=== PATIENT | female | born 1970 | race Caucasian/White ===

== ENCOUNTER 2020-08-13 12:29 | Inpatient (IN) | payer OTHER ==
--- NOTE | 2020-08-13 12:56 | BHS.RME ---
2019 N Coronavirus Screen - COVID-19 Screening Questions Dx of COVID-19 or had a positive test in the last 4 weeks?: No Contact with known/suspected COVID patient in last 14 days?: No Any of these symptoms or contact with someone who has?: None Traveled domestically/internationally in the last 14 days?: No Screen score: 0 Screen result: Further Evaluation Substance Use & Tx History - Substance Use History Cocaine-Crack Substance amount: $200 Frequency of use: Daily Substance route: Smoking Date of Last Use: 08/07/20 (started age 19) Nicotine Substance amount: 1 pack Frequency of use: Daily Substance route: Smoking Date of Last Use: 08/13/20 (started age 19) Physical/Psych/Mental Status - Behavior Eye Contact: Normal - Cooperativeness Cooperativeness: Cooperative - Thinking Thought Processes: Tight, Logical, Goal Directed - Physical Health Problems Is patient presently having any pain?: No Does patient presently have any injuries (include location): No Does patient currently have a fever: No Is patient : No
[2020-08-13 15:09] VITALS: BMI 23.8
--- NOTE | 2020-08-13 15:36 | HP ---
CIWA Score - Admission Criteria OASAS Guidelines: Admission for Medically Managed Detox: Requires at least one of the followin. CIWA greater than 12 2. Seizures within the past 24 hours 3. Delirium tremens within the past 24 hours 4. Hallucinations within the past 24 hours 5. Acute intervention needed for co occurring medical disorder 6. Acute intervention needed for co occurring psychiatric disorder 7. Severe withdrawal that cannot be handled at a lower level of care (continued vomiting, continued diarrhea, abnormal vital signs) requiring intravenous medication and/or fluids 8. Admitting History and Physical - Admission Chief Complaint: I am here for rehab for cocaine History of Present Illness: 49 yo F with PMH bipolar disorder and asthma presented to [facility] for rehab (cocaine). Pt is new to [facility]. Pt was recently at [facility] for psychiatric admission. Per its documentation, there are concerns for pt "malingering for housing". Pt had COVID PCR that was negative on 08/11/2020. Pt stated she hopes to get back on track with her life. PMH: as above PSH: denies Psych: bipolar disoder (on seroquel and depakote) SOC/domiciled: homeless, but lives in friend's house ([place]) Legal: denies - Substance Use History Cocaine-Crack Substance amount: $200 Frequency of use: Daily Substance route: Smoking Date of Last Use: 08/07/20 (started age 19) Nicotine Substance amount: 1 pack Frequency of use: Daily Substance route: Smoking Date of Last Use: 08/13/20 (started age 19) History Source: Patient Limitations to Obtaining History: No Limitations - Past Medical History ...LMP: 06/13/20 ...: No - Smoking History Smoking history: Current every day smoker Have you smoked in the past 12 months: No Aproximately how many cigarettes per day: 20 Admission ROS S - HPI Allergies/Adverse Reactions: Allergies Allergy/AdvReac Type Severity Reaction Status Date / Time No Known Allergies Allergy Verified 08/13/20 15:15 Exam Limitations: No Limitations - Review of Systems Constitutional: No Symptoms Reported, Unintentional Wgt. Loss (10 lbs in 1 month) EENT: reports: Blurred Vision, Recent change in vision. denies: Double Vision, Difficulty Swallowing, Throat Pain, Throat Swelling Respiratory: reports: Wheezing. denies: Cough, Shortness of Breath Cardiac: reports: No Symptoms Reported. denies: Chest Pain, Lightheadedness GI: reports: No Symptoms Reported. denies: Blood Streaked Bowels, Constipated, Diarrhea, Nausea, Vomiting : reports: No Symptoms Reported. denies: Burning, Dysuria Integumentary: reports: Lesions (1 lesion (scabbed over) on L upper extremity (forearm)) Neuro: reports: No Symptoms reported. denies: Headache, Numbness, Tingling Endocrine: reports: No Symptoms Reported Hematology: reports: No Symptoms Reported. denies: Blood Clots, Easy Bleeding Psychiatric: reports: Depressed Patient History - Patient Medical History Hx Asthma: Yes Hx Chronic Obstructive Pulmonary Disease (COPD): No Hx Cardiac Disorders: No Hx Hypertension: No Hx Seizures: No Hx Diabetes: No Hx Gastrointestinal Disorders: No Hx Genitourinary Disorders: No Hx Sexually Transmitted Disorders: Yes (hx of syphillis) Hx Renal Disease (ESRD): No Hx Depression: Yes Hx Suicide Attempt: Yes (Tried to overdose in 2019) Hx Schizophrenia: No - Patient Surgical History Past Surgical History: No - PPD History Previous Implant?: Yes Documented Results: Negative w/o proof Implanted On Prior R Admission?: No - Reproductive History Last Menstrual Period: 06/13/20 Patient : No - Smoking Cessation Smoking history: Current every day smoker Have you smoked in the past 12 months: Yes Aproximately how many cigarettes per day: 20 Hx Chewing Tobacco Use: No Initiated information on smoking cessation: Yes 'Breaking Loose' booklet given: 08/13/20 Admission Physical Exam S - Vital Signs Vital Signs: Vital Signs - 24 hr 08/13/20 15:07 Temperature 97.1 F L Pulse Rate 75 Respiratory 12 Rate Blood Pressure 112/73 - Physical General Appearance: Yes: No Apparent Distress, Nourished, Appropriately Dressed HEENTM: Yes: EOMI, Normocephalic, Normal Voice, ONEYDA, Other (NCAT, EOMI, PERRL, moist mucus membranes.) Respiratory: Yes: Chest Non-Tender, Lungs Clear, Normal Breath Sounds, No Respiratory Distress, No Accessory Muscle Use Neck: Yes: No masses,lesions,Nodules, Supple Breast: Yes: Breast Exam Deferred Cardiology: Yes: Regular Rhythm, Regular Rate, S1, S2 Abdominal: Yes: Normal Bowel Sounds, Non Tender, Flat, Soft Genitourinary: Yes: Other (deferred) Back: Yes: Normal Inspection Musculoskeletal: Yes: Gait Steady Extremities: Yes: Other (warm, well-perfused. No edema R anterior leg, tender to palpation (no gross lesions/ecchymosis seen) 2+ pulses in all extremities) Neurological: Yes: child and family services worker II-XII NML intact, Fully Oriented, Alert, Motor Strength 5/5, Normal Mood/Affect, Normal Response Integumentary: Yes: Dry, Warm, Other (Scab on L forearm. Does not look infected.) - Diagnostic (1) Asthma Current Visit: Yes Status: Chronic Qualifiers: Asthma severity: unspecified severity Asthma persistence: unspecified A sthma complication type: unspecified Qualified Code(s): J45.909 - Unspecified asthma, uncomplicated (2) Bipolar disorder Current Visit: Yes Status: Chronic Qualifiers: Active/Remission status: remission status unspecified Qualified Code(s): F31.9 - Bipolar disorder, unspecified (3) Homeless Current Visit: Yes Status: Acute (4) Cocaine dependence Current Visit: Yes Status: Chronic Qualifiers: Substance use status: with unspecified cocaine-induced disorder Qualified Code(s): F14.29 - Cocaine dependence with unspecified cocaine-induced disorder (5) Nicotine dependence Current Visit: Yes Status: Acute Qualifiers: Nicotine product type: cigarettes Substance use status: unspecified nicotine-induced disorder Qualified Code(s): F17.219 - Nicotine dependence, cigarettes, with unspecified nicotine-induced disorders Cleared for Admission S - Detox or Rehab [facility] Level of Care: Medically Supervised Breathalyzer - Breathalyzer Breathalyzer: 0 Urine Drug Screen - Test Device Lot number: [id number] Expiration date: 05/15/22 - Control Is test valid?: Yes - Results Drug screen NEGATIVE: Yes Inpatient Rehab Admission - Rehab Decision to Admit Inpatient rehab admission?: Yes - Initial Determination Are CD services needed?: Yes Free of communicable disease: Yes Not in need of hospitalization: Yes - Rehab Admission Criteria Previous failed treatment: Yes Poor recovery environment: Yes Comorbidities: Yes Lacks judgement: Yes Patient is meeting Inpatient Rehab admission criteria:: Yes
[2020-08-13] MEDS ORDERED: NICOTINE POLACRILEX 2 MG GUM BC PRN (15:45)
[2020-08-13] MEDS ORDERED: guaiFENesin 200 MG/10 ML 10 ML UNIT-DOSE CUPS PO PRN (15:45)
[2020-08-13] MEDS ORDERED: IBUPROFEN 400 MG TABLET (FP) PO PRN (15:45)
[2020-08-13] MEDS ORDERED: LOPERAMIDE HCL 2 MG CAPSULE PO PRN (15:45)
[2020-08-13] MEDS ORDERED: P-EPHED 60MG/TRIPROLIDI 2.5MG TABLET PO PRN (15:45)
[2020-08-13] MEDS ORDERED: ACETAMINOPHEN 325 MG TABLET (FP) PO PRN (15:45)
[2020-08-13] MEDS ORDERED: MAGNESIUM HYDROX 2400MG/30ML ORAL SUSPENSION 30 ML CUP PO PRN (15:45)
[2020-08-13] MEDS ORDERED: MAGNESIUM CITRATE 300 ML BOTTLE PO PRN (15:45)
[2020-08-13] MEDS ORDERED: MAG HYDROX/AL HYDROX/SIMETH 30 ML UNIT-DOSE CUP PO PRN (15:45)
[2020-08-13] MEDS ORDERED: TUBERCULIN PPD 5 TU/0.1ML VIAL ID ONE (16:33)
[2020-08-13 16:53] LABS: POTASSIUM 4.2 mmol/L (3.5-5.1)
[2020-08-13 16:55] LABS: ALBUMIN 3.1 g/dl (3.4-5.0); CALCIUM 9.2 mg/dL (8.5-10.1)
[2020-08-13 16:56] LABS: BLOOD UREA NITROGEN 15.6 mg/dL (7-18)
[2020-08-13 16:58] LABS: CREATININE 0.6 mg/dL (0.55-1.3)
[2020-08-13 17:00] LABS: BILIRUBIN,TOTAL 0.7 mg/dL (0.2-1); TOT PROT 6.6 g/dl (6.4-8.2)
[2020-08-13 17:01] LABS: HEMATOCRIT 41.2 % (32.4-45.2); MCH 27.4 pg (25.7-33.7); MCHC 31.5 g/dl (32.0-36.0); MEAN CELL VOLUME 87.1 fl (80-96); MEAN PLT VOLUME 8.8 fl (7.5-11.1); PLATELET COUNT 261 K/MM3 (134-434); RBC 4.74 M/mm3 (3.60-5.2); WHITE BLOOD COUNT 6.4 K/mm3 (4.0-10.0)
[2020-08-13 17:37] LABS: SICKLE CELL SCREEN NEGATIVE (NEGATIVE)
[2020-08-13] MEDS: ALBUTEROL SO4 HFA INHALER IH SCH ×2 (17:58→21:15)
[2020-08-13] MEDS: hydrOXYzine PAMOATE 25 MG CAPSULE (FP) PO SCH ×2 (18:30→21:12)
[2020-08-13] MEDS: MELATONIN 5 MG TABLETS PO SCH (21:12)
[2020-08-13] MEDS: THIAMINE HCL 100 MG TABLET (FP) PO SCH (21:12)
[2020-08-14] MEDS: ALBUTEROL SO4 HFA INHALER IH SCH ×3 (00:59→08:05)
[2020-08-14] MEDS: hydrOXYzine PAMOATE 25 MG CAPSULE (FP) PO SCH ×5 (06:50→21:21)
[2020-08-14] MEDS ORDERED: ALBUTEROL SO4 HFA INHALER IH PRN (08:05)
--- NOTE | 2020-08-14 09:15 | PN ---
Teaching Attending Note Name of Resident: Clarita Contreras ATTENDING PHYSICIAN STATEMENT I saw and evaluated the patient. I reviewed the resident's note and discussed the case with the resident. I agree with the resident's findings and plan as documented. SUBJECTIVE: OBJECTIVE: ASSESSMENT AND PLAN: 1. Cocaine use disorder Plan 1. Rehab admit
[2020-08-14] MEDS: NICOTINE 21 MG/24 HOURS TOPICAL PATCH TD SCH (09:32)
[2020-08-14] MEDS: PRENATAL VITAMINS W/ FOLIC ACID TABLET (FP) PO SCH (09:32)
[2020-08-14 10:21] LABS: PH,URINE 6.5 (5.0-8.0); URINE APPEARANCE CLOUDY; URINE BILIRUBIN NEGATIVE (NEGATIVE); URINE COLOR YELLOW; URINE GLUCOSE (UA) NEGATIVE (NEGATIVE); URINE KETONE NEGATIVE (NEGATIVE); URINE LEUK ESTERASE NEGATIVE (NEGATIVE); URINE NITRITE NEGATIVE (NEGATIVE); URINE PROTEIN NEGATIVE (NEGATIVE); URINE UROBILINOGEN 0.2 mg/dL (0.2-1.0)
--- NOTE | 2020-08-14 11:45 | PN ---
[facility] Progress Note Note: Pt is a 49 y/o female with a hx of YOLANDA admitted to rehab yesterday, first admission to this facility. PMHx:Asthma, Hx of Syphilis w/ past treatment(pt verbal hx) Psych Hx:Bipolar disorder Vital Signs - 24 hr 08/13/20 08/13/20 15:07 21:57 Temperature 97.1 F L Pulse Rate 75 Respiratory 12 Rate Blood Pressure 112/73 O2 Sat by Pulse 98 Oximetry (%) Laboratory Tests 08/13/20 08/13/20 08/13/20 15:30 15:30 15:30 WBC 6.4 RBC 4.74 Hgb 13.0 Hct 41.2 MCV 87.1 MCH 27.4 MCHC 31.5 L RDW 14.0 Plt Count 261 MPV 8.8 Sickle Cell Screen Negative Sodium 140 Potassium 4.2 Chloride 106 Carbon Dioxide 28 Anion Gap 6 L BUN 15.6 Creatinine 0.6 Est GFR (CKD-EPI)AfAm 125.80 Est GFR (CKD-EPI)NonAf 108.54 Random Glucose 110 H Calcium 9.2 Total Bilirubin 0.7 AST 10 L ALT 20 Alkaline Phosphatase 47 Total Protein 6.6 Albumin 3.1 L Urine Color Urine Appearance Urine pH Ur Specific [place] Urine Protein Urine Glucose (UA) Urine Ketones Urine Blood Urine Nitrite Urine Bilirubin Urine Urobilinogen Ur Leukocyte Esterase Valproic Acid Syphilis Serology Reactive A* RPR Titer HIV Ag/Ab Combo Qual 08/13/20 08/13/20 08/13/20 15:30 15:30 15:30 WBC RBC Hgb Hct MCV MCH MCHC RDW Plt Count MPV Sickle Cell Screen Sodium Potassium Chloride Carbon Dioxide Anion Gap BUN Creatinine Est GFR (CKD-EPI)AfAm Est GFR (CKD-EPI)NonAf Random Glucose Calcium Total Bilirubin AST ALT Alkaline Phosphatase Total Protein Albumin Urine Color Urine Appearance Urine pH Ur Specific [place] Urine Protein Urine Glucose (UA) Urine Ketones Urine Blood Urine Nitrite Urine Bilirubin Urine Urobilinogen Ur Leukocyte Esterase Valproic Acid 24.1 L Syphilis Serology RPR Titer Reactive 1:1 H HIV Ag/Ab Combo Qual Negative 08/14/20 08:55 WBC RBC Hgb Hct MCV MCH MCHC RDW Plt Count MPV Sickle Cell Screen Sodium Potassium Chloride Carbon Dioxide Anion Gap BUN Creatinine Est GFR (CKD-EPI)AfAm Est GFR (CKD-EPI)NonAf Random Glucose Calcium Total Bilirubin AST ALT Alkaline Phosphatase Total Protein Albumin Urine Color Yellow Urine Appearance Cloudy Urine pH 6.5 Ur Specific [place] 1.027 Urine Protein Negative Urine Glucose (UA) Negative Urine Ketones Negative Urine Blood Negative Urine Nitrite Negative Urine Bilirubin Negative Urine Urobilinogen 0.2 Ur Leukocyte Esterase Negative Valproic Acid Syphilis Serology RPR Titer HIV Ag/Ab Combo Qual Syphilis titer 1:1 -pt reports previous hx and treatment "sometime ago". No treatment needed per pt's hx. Alert o x 3 nad oob ambulating with steady gait extremities:no edema, skin intact YOLANDA Increase po fluids maintain safety
--- NOTE | 2020-08-14 11:50 | EKG ---
Test Reason : Blood Pressure : / mmHG Vent. Rate : 073 BPM Atrial Rate : 073 BPM P-R Int : 154 ms QRS Dur : 112 ms QT Int : 392 ms P-R-T Axes : 053 029 036 degrees QTc Int : 431 ms NORMAL SINUS RHYTHM INCOMPLETE RIGHT BUNDLE BRANCH BLOCK BORDERLINE ECG NO PREVIOUS ECGS AVAILABLE Confirmed by CRISTY RODAS, ELLI ([id number]) on 08/14/2020 11:50:14 AM Referred By: Confirmed By:ELLI MUNIZ MD
--- NOTE | 2020-08-14 16:09 | PREP.REFER ---
HIV PrEP/PEP - PrEP HIV Risk Assessment When was your last HIV test?: sometime ago HIV Test offered: Accepted Are you concerned about any sexual encounters past 6 months?: No Have you had a STI in the last 6 months?: No Have you shared needles or other equipment?: No Are you interested in daily medication to help prevent HIV?: Yes Recommendation: Consider PrEP referral Comment: Pt reports monogamous relationship but states she might be interested in PrEP.
--- NOTE | 2020-08-14 16:40 | CONSULT ---
[facility] Psychiatric Consult - Data Date of interview: 08/14/20 Admission source: [facility] Identifying data: Patient is a 49 year old single female, mother of one, unemployed, homeless, and is not currently receiving any financial assistance. This is patient's first admission to rehab at [facility]. Patient admitted to for cocaine dependence. Substance Abuse History: Substance Use History. Cocaine-Crack. Substance am ount: $200. Frequency of use: Daily. Substance route: Smoking. Date of Last Use: 08/07/20 (started age 19). Nicotine. Substance amount: 1 pack. Frequency of use: Daily. Substance route: Smoking. Date of Last Use: 08/13/20 (started age 19) Medical History: Asthma, hx of syphillis Psychiatric History: Patient presents as irritable. Ms. Sandy reports history of multiple psychiatric hospitalizations at several hospitals including but not limited to [facility], [facility], [facility], and most recently at [facility] on due to depressed mood. Ms. Sandy was treated with Seroquel 100mg HS + Trazodone 100mg HS + Depakote 500mg HS at [facility] ( paperwork reviewed). History of multiple suicide attempt via overdose (seroquel) + cutting. Diagnosis of Bipolar affective disorder + Cocaine abuse + Substance induced mood disorder as per [facility] paperwork. Patient is totally lost in follow up care. Patient denies thoughts or urges to hurt self or others. Physical/Sexual Abuse/Trauma History: Not discussed. Patient became irritable upon discussion of medications. Mental Status Exam - Mental Status Exam Alert and Oriented to: Time, Place, Person Cognitive Function: Good Patient Appearance: Well Groomed Mood: Irritable Affect: Mood Congruent Patient Behavior: Agitated (Patient agitated for most of assessment but was able to stay in control and cooperate with typewriter aligner.) Speech Pattern: Appropriate Voice Loudness: Normal Thought Process: Intact, Goal Oriented Thought Disorder: Not Present Hallucinations: Denies Suicidal Ideation: Denies Homicidal Ideation: Denies Insight/Judgement: Poor Sleep: Poorly Appetite: Fair Muscle strength/Tone: Normal Gait/Station: Normal Psychiatric Findings - Problem List ([place] 1, 2,3) (1) Substance induced mood disorder Current Visit: Yes Status: Acute (2) Bipolar disorder Current Visit: Yes Status: Chronic Qualifiers: Active/Remission status: remission status unspecified Qualified Code(s): F31.9 - Bipolar disorder, unspecified (3) Cocaine dependence Current Visit: Yes Status: Chronic Qualifiers: Substance use status: with unspecified cocaine-induced disorder Qualified Code(s): F14.29 - Cocaine dependence with unspecified cocaine-induced disorder (4) Substance-induced sleep disorder Current Visit: Yes Status: Acute - Initial Treatment Plan Initial Treatment Plan: Psychoeducation provided. Rehab in progress. Will order Seroquel 100mg + Trazodone 100mg HS + Depakote 500mg HS. Will order Valproic acid level for 08/15/20. Benefits and side effects discussed. Verbal consent given.
[2020-08-14] MEDS: MELATONIN 5 MG TABLETS PO SCH (21:21)
[2020-08-14] MEDS: THIAMINE HCL 100 MG TABLET (FP) PO SCH (21:21)
[2020-08-14] MEDS: traZODone HCL 100 MG TABLET (FP) PO SCH (21:22)
[2020-08-14] MEDS: DIVALPROEX SODIUM 500 MG TABLET E.C. PO SCH (21:23)
[2020-08-14] MEDS: QUEtiapine FUMARATE 100 MG TABLET (FP) PO SCH (21:23)
[2020-08-15] MEDS: hydrOXYzine PAMOATE 25 MG CAPSULE (FP) PO SCH ×5 (06:48→21:20)
[2020-08-15] MEDS: PRENATAL VITAMINS W/ FOLIC ACID TABLET (FP) PO SCH (10:37)
[2020-08-15] MEDS: NICOTINE 21 MG/24 HOURS TOPICAL PATCH TD SCH (10:37)
[2020-08-15] MEDS ORDERED: FLU VACCINE (FLULAVAL) PF 60 MCG/0.5 ML SYRINGE 2020-2021 IM ONE (12:00)
[2020-08-15] MEDS: DIVALPROEX SODIUM 500 MG TABLET E.C. PO SCH (21:19)
[2020-08-15] MEDS: THIAMINE HCL 100 MG TABLET (FP) PO SCH (21:19)
[2020-08-15] MEDS: QUEtiapine FUMARATE 100 MG TABLET (FP) PO SCH (21:19)
[2020-08-15] MEDS: traZODone HCL 100 MG TABLET (FP) PO SCH (21:20)
[2020-08-15] MEDS: MELATONIN 5 MG TABLETS PO SCH (21:20)
[2020-08-16] MEDS: hydrOXYzine PAMOATE 25 MG CAPSULE (FP) PO SCH ×5 (07:10→21:31)
[2020-08-16] MEDS: PRENATAL VITAMINS W/ FOLIC ACID TABLET (FP) PO SCH (09:38)
[2020-08-16] MEDS: NICOTINE 21 MG/24 HOURS TOPICAL PATCH TD SCH (09:38)
[2020-08-16] MEDS: MELATONIN 5 MG TABLETS PO SCH (21:30)
[2020-08-16] MEDS: THIAMINE HCL 100 MG TABLET (FP) PO SCH (21:30)
[2020-08-16] MEDS: DIVALPROEX SODIUM 500 MG TABLET E.C. PO SCH (21:31)
[2020-08-16] MEDS: QUEtiapine FUMARATE 100 MG TABLET (FP) PO SCH (21:31)
[2020-08-16] MEDS: traZODone HCL 100 MG TABLET (FP) PO SCH (21:31)
[2020-08-17] MEDS: hydrOXYzine PAMOATE 25 MG CAPSULE (FP) PO SCH ×3 (06:32→13:34)
[2020-08-17 07:35] VITALS: BP 100/67; PULSE 64; TEMP 97.7
[2020-08-17] MEDS: NICOTINE 21 MG/24 HOURS TOPICAL PATCH TD SCH (10:30)
[2020-08-17] MEDS: PRENATAL VITAMINS W/ FOLIC ACID TABLET (FP) PO SCH (10:30)
--- NOTE | 2020-08-17 15:21 | PN ---
[facility] Progress Note Note: patient would like to be discharged,stated she is doing well,and would like to be discharged,she has a safe place to stay that she shared with her girlfriend,she has medications with her,advise follow up with out patient program as arrangement by counselor
--- NOTE | 2020-08-17 15:21 | DS ---
[facility] Rehab Discharge Summary - [facility] Rehab Discharge Summary Admission Date: 08/13/20 Discharge Date: 08/17/20 - History Present History: Cocaine dependence Pertinent Past History: asthma bipolar disorder nicotine dependence - Discharge Physical Exam Vital Signs: Vital Signs Temperature 97.7 F 08/17/20 07:32 Pulse Rate 64 08/17/20 07:32 Respiratory Rate 18 08/17/20 07:32 Blood Pressure 100/67 08/17/20 07:32 O2 Sat by Pulse Oximetry (%) 98 08/17/20 13:31 Pertinent Admission Physical Exam Findings: essentially within normal t97.1,p75,bp 112/73,r 12 - Medication Discharge Medications: Ambulatory Orders Albuterol Sulfate Inhaler - [Ventolin Hfa Inhaler -] 2 inh PO Q4H 08/13/20 Divalproex [Depakote -] 500 mg PO DAILY 08/13/20 Quetiapine Fumarate [Seroquel -] 100 mg PO HS 08/13/20 traZODone HCL [Trazodone HCl] 100 mg PO HS 08/14/20 - Medication-Assisted Treatment (MAT) Medication-Assisted Treatment (MAT): No - Discharge Instructions Diet, activity, other medical instructions: Diet: regular diet Activity: as tolerated Other medical instructions: - Diagnosis (1) Cocaine dependence Status: Chronic Qualifiers: Substance use status: with unspecified cocaine-induced disorder Qualified Code(s): F14.29 - Cocaine dependence with unspecified cocaine-induced disorder (2) Nicotine dependence Status: Acute Qualifiers: Nicotine product type: cigarettes Substance use status: unspecified nicotine-induced disorder Qualified Code(s): F17.219 - Nicotine dependence, cigarettes, with unspecified nicotine-induced disorders (3) Substance induced mood disorder Status: Acute (4) Substance-induced sleep disorder Status: Acute (5) Asthma Status: Chronic Qualifiers: Asthma severity: unspecified severity Asthma persistence: unspecified Asthma complication type: unspecified Qualified Code(s): J45.909 - Unspecified asthma, uncomplicated (6) Bipolar disorder Status: Chronic Qualifiers: Active/Remission status: remission status unspecified Qualified Code(s): F31.9 - Bipolar disorder, unspecified - Follow-up Referral Minutes to complete discharge: 35 - AMA Did Patient Leave Against Medical Advice: No Additional Comments: alert,oriented x 3 ambulation on the unit lung clear on auscultation bilaterally no abdominal pain no edema of legs stable for discharge total time spending on discharge 35 minutes left the unit in stable condition patient has safe place to stay with her girlfriend,has medications with her,will follow up with out patient program as arrangement by counselor
== END 2020-08-17 15:26 | disposition home or self-care (01) | DRG 772 ==
LOC: YASAS 12:29 → Y3E 15:47
PROVIDERS: ADMIT Allergy & Immunology; ATTEND Allergy & Immunology
PROC: HZ42ZZZ Group Counseling for Substance Abuse Treatment, Cognitive-Behavioral (ICD-10-PCS; principal; 2020-08-13)
DX: F14.20 Cocaine dependence, uncomplicated (principal); F17.210 Nicotine dependence, cigarettes, uncomplicated; F31.9 Bipolar disorder, unspecified; F19.282 Other psychoactive substance dependence with psychoactive substance-induced sleep disorder; F19.24 Other psychoactive substance dependence with psychoactive substance-induced mood disorder; J45.909 Unspecified asthma, uncomplicated; Z86.19 Personal history of other infectious and parasitic diseases; Z56.0 Unemployment, unspecified; Z59.0 Homelessness
CPT/HCPCS: 36415; 80053; 80164; 81003; 85027; 85660; 86593; 86780; 87389; 93005; 93010

== ENCOUNTER 2020-12-25 12:16 | Inpatient (IN) | payer OTHER ==
[2020-12-25 13:06] VITALS: BMI 24.3
[2020-12-25] MEDS ORDERED: MAG HYDROX/AL HYDROX/SIMETH 30 ML UNIT-DOSE CUP PO PRN (15:49)
[2020-12-25] MEDS ORDERED: guaiFENesin 200 MG/10 ML 10 ML UNIT-DOSE CUPS PO PRN (15:49)
[2020-12-25] MEDS ORDERED: LOPERAMIDE HCL 2 MG CAPSULE PO PRN (15:49)
[2020-12-25] MEDS ORDERED: MAGNESIUM CITRATE 300 ML BOTTLE PO PRN (15:49)
[2020-12-25] MEDS ORDERED: MAGNESIUM HYDROX 2400MG/30ML ORAL SUSPENSION 30 ML CUP PO PRN (15:49)
[2020-12-25] MEDS ORDERED: P-EPHED 60MG/TRIPROLIDI 2.5MG TABLET PO PRN (15:49)
[2020-12-25] MEDS ORDERED: NICOTINE POLACRILEX 2 MG GUM BC PRN (15:49)
[2020-12-25] MEDS ORDERED: ACETAMINOPHEN 325 MG TABLET (FP) PO PRN (15:49)
[2020-12-25] MEDS ORDERED: NICOTINE 21 MG/24 HOURS TOPICAL PATCH TD SCH (16:00)
[2020-12-25 17:02] VITALS: BP 138/82; PULSE 63; TEMP 97.7
[2020-12-25] MEDS: IBUPROFEN 400 MG TABLET (FP) PO PRN (17:23)
[2020-12-25] MEDS: PRENATAL VITAMINS W/ FOLIC ACID TABLET (FP) PO SCH (18:16)
[2020-12-25] MEDS: NICOTINE 7 MG/24 HOURS TOPICAL PATCH TD SCH (18:16)
[2020-12-25] MEDS: ALBUTEROL SO4 HFA INHALER IH SCH ×2 (21:12→22:48)
[2020-12-25] MEDS: hydrOXYzine PAMOATE 25 MG CAPSULE (FP) PO SCH ×2 (21:13→23:52)
[2020-12-25] MEDS: THIAMINE HCL 100 MG TABLET (FP) PO SCH (21:13)
[2020-12-25] MEDS: QUEtiapine FUMARATE 100 MG TABLET (FP) PO SCH (21:13)
[2020-12-25] MEDS: MELATONIN 5 MG TABLETS PO SCH (23:52)
[2020-12-26] MEDS: ALBUTEROL SO4 HFA INHALER IH SCH ×3 (01:41→08:29)
[2020-12-26] MEDS: hydrOXYzine PAMOATE 25 MG CAPSULE (FP) PO SCH (06:59)
[2020-12-26] MEDS ORDERED: ALBUTEROL SO4 HFA INHALER IH PRN (08:55)
[2020-12-26] MEDS: NICOTINE 7 MG/24 HOURS TOPICAL PATCH TD SCH (12:02)
[2020-12-26] MEDS: PRENATAL VITAMINS W/ FOLIC ACID TABLET (FP) PO SCH (12:02)
[2020-12-26 12:04] LABS: HEMATOCRIT 34.9 % (32.4-45.2); HEMOGLOBIN 11.2 GM/dL (10.7-15.3); MEAN CELL VOLUME 87.3 fl (80-96); MEAN PLT VOLUME 8.9 fl (7.5-11.1); PLATELET COUNT 242 K/MM3 (134-434); RDW 14.6 % (11.6-15.6); WHITE BLOOD COUNT 6.1 K/mm3 (4.0-10.0)
[2020-12-26 12:22] LABS: POTASSIUM 4.3 mmol/L (3.5-5.1)
[2020-12-26 12:29] LABS: ALBUMIN 2.8 g/dl (3.4-5.0); CALCIUM 8.4 mg/dL (8.5-10.1)
[2020-12-26 12:30] LABS: BLOOD UREA NITROGEN 9.2 mg/dL (7-18)
[2020-12-26 12:33] LABS: BILIRUBIN,TOTAL 0.7 mg/dL (0.2-1); CREATININE 0.6 mg/dL (0.55-1.3)
[2020-12-26] MEDS: IBUPROFEN 400 MG TABLET (FP) PO PRN (20:45)
[2020-12-26] MEDS: QUEtiapine FUMARATE 100 MG TABLET (FP) PO SCH (21:36)
[2020-12-26] MEDS: THIAMINE HCL 100 MG TABLET (FP) PO SCH (21:36)
[2020-12-26] MEDS: MELATONIN 5 MG TABLETS PO SCH (21:37)
[2020-12-27] MEDS: NICOTINE 7 MG/24 HOURS TOPICAL PATCH TD SCH (10:43)
[2020-12-27] MEDS: PRENATAL VITAMINS W/ FOLIC ACID TABLET (FP) PO SCH (10:43)
[2020-12-27] MEDS: hydrOXYzine PAMOATE 25 MG CAPSULE (FP) PO PRN ×2 (10:44→21:10)
[2020-12-27] MEDS: MELATONIN 5 MG TABLETS PO SCH (21:10)
[2020-12-27] MEDS: THIAMINE HCL 100 MG TABLET (FP) PO SCH (21:10)
[2020-12-27] MEDS: QUEtiapine FUMARATE 100 MG TABLET (FP) PO SCH (21:10)
[2020-12-28] MEDS: PRENATAL VITAMINS W/ FOLIC ACID TABLET (FP) PO SCH (10:49)
[2020-12-28] MEDS: NICOTINE 7 MG/24 HOURS TOPICAL PATCH TD SCH (10:49)
[2020-12-28] MEDS: QUEtiapine FUMARATE 100 MG TABLET (FP) PO SCH (22:08)
[2020-12-28] MEDS: MELATONIN 5 MG TABLETS PO SCH (22:08)
[2020-12-28] MEDS: THIAMINE HCL 100 MG TABLET (FP) PO SCH (22:08)
[2020-12-28] MEDS: hydrOXYzine PAMOATE 25 MG CAPSULE (FP) PO PRN (22:08)
[2020-12-29] MEDS: PRENATAL VITAMINS W/ FOLIC ACID TABLET (FP) PO SCH (10:54)
[2020-12-29] MEDS: NICOTINE 7 MG/24 HOURS TOPICAL PATCH TD SCH (10:54)
[2020-12-29] MEDS ORDERED: MASKS NR ONE (20:49)
[2020-12-29] MEDS: THIAMINE HCL 100 MG TABLET (FP) PO SCH (21:07)
[2020-12-29] MEDS: MELATONIN 5 MG TABLETS PO SCH (21:07)
[2020-12-29] MEDS: QUEtiapine FUMARATE 100 MG TABLET (FP) PO SCH (21:07)
[2020-12-29] MEDS: hydrOXYzine PAMOATE 25 MG CAPSULE (FP) PO PRN (21:08)
[2020-12-30] MEDS: PRENATAL VITAMINS W/ FOLIC ACID TABLET (FP) PO SCH (11:16)
[2020-12-30] MEDS: NICOTINE 7 MG/24 HOURS TOPICAL PATCH TD SCH (11:17)
[2020-12-30] MEDS: QUEtiapine FUMARATE 50 MG TABLET PO SCH (22:06)
[2020-12-30] MEDS: THIAMINE HCL 100 MG TABLET (FP) PO SCH (22:06)
[2020-12-30] MEDS: MELATONIN 5 MG TABLETS PO SCH (22:06)
[2020-12-30] MEDS: traZODone HCL 50 MG TABLET (FP) PO SCH (22:07)
[2020-12-30] MEDS ORDERED: MASKS NR ONE (22:09)
[2020-12-31] MEDS: PRENATAL VITAMINS W/ FOLIC ACID TABLET (FP) PO SCH (10:48)
[2020-12-31] MEDS: NICOTINE 7 MG/24 HOURS TOPICAL PATCH TD SCH (10:48)
[2020-12-31] MEDS: QUEtiapine FUMARATE 50 MG TABLET PO SCH (21:09)
[2020-12-31] MEDS: traZODone HCL 50 MG TABLET (FP) PO SCH (21:10)
[2020-12-31] MEDS: THIAMINE HCL 100 MG TABLET (FP) PO SCH (21:10)
[2020-12-31] MEDS: MELATONIN 5 MG TABLETS PO SCH (21:10)
[2021-01-01] MEDS: PRENATAL VITAMINS W/ FOLIC ACID TABLET (FP) PO SCH (10:10)
[2021-01-01] MEDS: NICOTINE 7 MG/24 HOURS TOPICAL PATCH TD SCH (10:12)
[2021-01-01] MEDS: IBUPROFEN 400 MG TABLET (FP) PO PRN (10:12)
== END 2021-01-01 11:35 | disposition home or self-care (01) | DRG 772 ==
LOC: YASAS 12:16 → Y5N 15:59
PROVIDERS: ADMIT Allergy & Immunology; ATTEND Allergy & Immunology
PROC: HZ42ZZZ Group Counseling for Substance Abuse Treatment, Cognitive-Behavioral (ICD-10-PCS; principal; 2020-12-25)
DX: F10.20 Alcohol dependence, uncomplicated (principal); F14.20 Cocaine dependence, uncomplicated; F17.210 Nicotine dependence, cigarettes, uncomplicated; F19.282 Other psychoactive substance dependence with psychoactive substance-induced sleep disorder; F19.24 Other psychoactive substance dependence with psychoactive substance-induced mood disorder; F31.9 Bipolar disorder, unspecified; J45.909 Unspecified asthma, uncomplicated; Z62.810 Personal history of physical and sexual abuse in childhood; Z91.410 Personal history of adult physical and sexual abuse; Z86.19 Personal history of other infectious and parasitic diseases; Z56.0 Unemployment, unspecified; Z59.0 Homelessness
CPT/HCPCS: 36415; 80053; 80164; 81025; 85027; 86593; 86780; C9803; U0003

== ENCOUNTER 2021-09-08 17:21 | Inpatient (IN) | payer OTHER ==
[2021-09-08] MEDS ORDERED: ONDANSETRON *ODT* 4 MG TABLET SL PRN (20:27)
[2021-09-08] MEDS ORDERED: MAG HYDROX/AL HYDROX/SIMETH 30 ML UNIT-DOSE CUP PO PRN (20:27)
[2021-09-08] MEDS ORDERED: MENTHOL/PHENOL 1 EACH UD MM PRN (20:27)
[2021-09-08] MEDS ORDERED: BISMUTH SUBSALICYLATE 524 MG/30 ML PO PRN (20:27)
[2021-09-08] MEDS ORDERED: ACETAMINOPHEN 325 MG TABLET (FP) PO PRN ×2 (20:27)
[2021-09-08] MEDS ORDERED: MAGNESIUM HYDROX 2400MG/30ML ORAL SUSPENSION 30 ML CUP PO PRN (20:27)
[2021-09-08] MEDS ORDERED: NICOTINE 10 MG CARTRIDGE (INHALER) IH PRN (20:27)
[2021-09-08] MEDS ORDERED: MAGNESIUM CITRATE 300 ML BOTTLE PO PRN (20:27)
[2021-09-08] MEDS ORDERED: IBUPROFEN 400 MG TABLET (FP) PO PRN (20:27)
[2021-09-08] MEDS ORDERED: diazePAM 5 MG TABLET PO PRN (20:30)
[2021-09-08 21:11] VITALS: BMI 22.6
[2021-09-08] MEDS: THIAMINE HCL 100 MG TABLET (FP) PO SCH (23:11)
[2021-09-08] MEDS: MELATONIN 5 MG TABLETS PO SCH (23:11)
[2021-09-09] MEDS: ALBUTEROL SO4 HFA INHALER IH PRN (01:49)
[2021-09-09] MEDS: hydrOXYzine PAMOATE 25 MG CAPSULE (FP) PO PRN (10:51)
[2021-09-09] MEDS: PRENATAL VITAMINS W/ FOLIC ACID TABLET (FP) PO SCH (10:53)
[2021-09-09 12:21] LABS: HEMATOCRIT 38.2 % (32.4-45.2); HEMOGLOBIN 12.5 GM/dL (10.7-15.3); MCH 28.2 pg (25.7-33.7); MCHC 32.7 g/dl (32.0-36.0); MEAN CELL VOLUME 86.4 fl (80-96); MEAN PLT VOLUME 8.7 fl (7.5-11.1); PLATELET COUNT 267 10^3/uL (134-434); RBC 4.42 M/mm3 (3.60-5.2); WHITE BLOOD COUNT 4.6 K/mm3 (4.0-10.0)
[2021-09-09 12:36] LABS: ALBUMIN 2.8 g/dl (3.4-5.0); BLOOD UREA NITROGEN 13.6 mg/dL (7-18); CREATININE 0.7 mg/dL (0.55-1.3)
[2021-09-09 12:38] LABS: BILIRUBIN,TOTAL 0.2 mg/dL (0.2-1); TOT PROT 5.8 g/dl (6.4-8.2)
[2021-09-09 12:41] LABS: CALCIUM 8.8 mg/dL (8.5-10.1)
[2021-09-09] MEDS ORDERED: diazePAM 5 MG TABLET PO ONE (13:42)
[2021-09-09] MEDS: LIDOCAINE 5% TOPICAL PATCH TP SCH (14:29)
[2021-09-09] MEDS: diazePAM 5 MG TABLET PO SCH ×2 (18:09→23:00)
[2021-09-09] MEDS ORDERED: diazePAM 5 MG TABLET PO PRN (20:00)
[2021-09-09] MEDS: THIAMINE HCL 100 MG TABLET (FP) PO SCH (23:00)
[2021-09-09] MEDS: MELATONIN 5 MG TABLETS PO SCH (23:00)
[2021-09-09] MEDS: LIDOCAINE PATCH REMOVAL MC SCH (23:16)
[2021-09-10] MEDS: ALBUTEROL SO4 HFA INHALER IH PRN (00:42)
[2021-09-10] MEDS: diazePAM 5 MG TABLET PO SCH ×4 (07:02→22:13)
[2021-09-10] MEDS: PRENATAL VITAMINS W/ FOLIC ACID TABLET (FP) PO SCH (11:02)
[2021-09-10] MEDS: LIDOCAINE 5% TOPICAL PATCH TP SCH (11:02)
[2021-09-10] MEDS ORDERED: PENICILLIN G BENZATHINE 2,400,000 UNIT/4 ML PFS IM ONE (14:30)
[2021-09-10] MEDS: METHOCARBAMOL 500 MG TABLET PO PRN (22:12)
[2021-09-10] MEDS: MELATONIN 5 MG TABLETS PO SCH (22:12)
[2021-09-10] MEDS: THIAMINE HCL 100 MG TABLET (FP) PO SCH (22:12)
[2021-09-10] MEDS: hydrOXYzine PAMOATE 25 MG CAPSULE (FP) PO PRN (22:13)
[2021-09-10] MEDS: LIDOCAINE PATCH REMOVAL MC SCH (22:14)
[2021-09-11] MEDS: diazePAM 5 MG TABLET PO SCH ×3 (06:00→22:23)
[2021-09-11] MEDS: PRENATAL VITAMINS W/ FOLIC ACID TABLET (FP) PO SCH (10:06)
[2021-09-11] MEDS: LIDOCAINE 5% TOPICAL PATCH TP SCH (10:06)
[2021-09-11] MEDS: METHOCARBAMOL 500 MG TABLET PO PRN ×2 (10:09→22:23)
[2021-09-11] MEDS: THIAMINE HCL 100 MG TABLET (FP) PO SCH (22:22)
[2021-09-11] MEDS: LIDOCAINE PATCH REMOVAL MC SCH (22:22)
[2021-09-11] MEDS: MELATONIN 5 MG TABLETS PO SCH (22:22)
[2021-09-12] MEDS: diazePAM 5 MG TABLET PO SCH ×2 (07:45→18:08)
[2021-09-12] MEDS: LIDOCAINE 5% TOPICAL PATCH TP SCH (10:53)
[2021-09-12] MEDS: PRENATAL VITAMINS W/ FOLIC ACID TABLET (FP) PO SCH (10:53)
[2021-09-12] MEDS: ALBUTEROL SO4 HFA INHALER IH PRN (18:08)
[2021-09-12] MEDS: THIAMINE HCL 100 MG TABLET (FP) PO SCH (22:19)
[2021-09-12] MEDS: MELATONIN 5 MG TABLETS PO SCH (22:19)
[2021-09-12] MEDS: LIDOCAINE PATCH REMOVAL MC SCH (22:20)
[2021-09-13] MEDS: ALBUTEROL SO4 HFA INHALER IH PRN ×2 (03:11→10:14)
[2021-09-13] MEDS ORDERED: diazePAM 5 MG TABLET PO ONE (06:00)
[2021-09-13 09:03] VITALS: BP 105/69; PULSE 95; TEMP 97.3
[2021-09-13] MEDS: LIDOCAINE 5% TOPICAL PATCH TP SCH (10:15)
[2021-09-13] MEDS: PRENATAL VITAMINS W/ FOLIC ACID TABLET (FP) PO SCH (10:15)
== END 2021-09-13 12:51 | disposition other institution (70) | DRG 774 ==
LOC: YASAS 17:21 → UNDOADMIN 20:20 → Y3N 20:20
PROVIDERS: ADMIT Allergy & Immunology; ATTEND Allergy & Immunology
PROC: HZ2ZZZZ Detoxification Services for Substance Abuse Treatment (ICD-10-PCS; principal; 2021-09-08)
DX: F10.230 Alcohol dependence with withdrawal, uncomplicated (principal); F14.20 Cocaine dependence, uncomplicated; F17.210 Nicotine dependence, cigarettes, uncomplicated; F31.9 Bipolar disorder, unspecified; J45.909 Unspecified asthma, uncomplicated; R73.9 Hyperglycemia, unspecified; R00.0 Tachycardia, unspecified; E46 Unspecified protein-calorie malnutrition; Z68.22 Body mass index [BMI] 22.0-22.9, adult; Z86.19 Personal history of other infectious and parasitic diseases
CPT/HCPCS: 36415; 80053; 81025; 82947; 85027; 86593; 86780; C9803; U0003; U0005

== ENCOUNTER 2021-09-13 13:25 | Inpatient (IN) | payer OTHER ==
[2021-09-13] MEDS ORDERED: guaiFENesin 200 MG/10 ML 10 ML UNIT-DOSE CUPS PO PRN (14:32)
[2021-09-13] MEDS ORDERED: IBUPROFEN 400 MG TABLET (FP) PO PRN (14:32)
[2021-09-13] MEDS ORDERED: MAGNESIUM CITRATE 300 ML BOTTLE PO PRN (14:32)
[2021-09-13] MEDS ORDERED: MAGNESIUM HYDROX 2400MG/30ML ORAL SUSPENSION 30 ML CUP PO PRN (14:32)
[2021-09-13] MEDS ORDERED: LOPERAMIDE HCL 2 MG CAPSULE PO PRN (14:32)
[2021-09-13] MEDS ORDERED: P-EPHED 60MG/TRIPROLIDI 2.5MG TABLET PO PRN (14:32)
[2021-09-13] MEDS ORDERED: MAG HYDROX/AL HYDROX/SIMETH 30 ML UNIT-DOSE CUP PO PRN (14:32)
[2021-09-13] MEDS ORDERED: MENTHOL/PHENOL 1 EACH UD MM PRN (14:32)
[2021-09-13] MEDS ORDERED: TUBERCULIN PPD 5 TU/0.1ML VIAL ID ONE (17:12)
[2021-09-13] MEDS: MELATONIN 5 MG TABLETS PO SCH (21:26)
[2021-09-13] MEDS: THIAMINE HCL 100 MG TABLET (FP) PO SCH (21:26)
[2021-09-13] MEDS: ACETAMINOPHEN 325 MG TABLET (FP) PO PRN (21:39)
[2021-09-13] MEDS: ALBUTEROL SO4 HFA INHALER IH PRN (22:53)
[2021-09-14] MEDS: PRENATAL VITAMINS W/ FOLIC ACID TABLET (FP) PO SCH (10:06)
[2021-09-14] MEDS: hydrOXYzine PAMOATE 25 MG CAPSULE (FP) PO PRN ×2 (10:07→21:46)
[2021-09-14] MEDS: THIAMINE HCL 100 MG TABLET (FP) PO SCH (21:46)
[2021-09-14] MEDS: MELATONIN 5 MG TABLETS PO SCH (21:46)
[2021-09-14] MEDS: METHOCARBAMOL 500 MG TABLET PO PRN (21:46)
[2021-09-15] MEDS: PRENATAL VITAMINS W/ FOLIC ACID TABLET (FP) PO SCH (10:39)
[2021-09-15] MEDS: THIAMINE HCL 100 MG TABLET (FP) PO SCH (21:46)
[2021-09-15] MEDS: MELATONIN 5 MG TABLETS PO SCH (21:46)
[2021-09-15] MEDS: METHOCARBAMOL 500 MG TABLET PO PRN (21:46)
[2021-09-16] MEDS: PRENATAL VITAMINS W/ FOLIC ACID TABLET (FP) PO SCH (10:16)
[2021-09-16] MEDS: ACETAMINOPHEN 325 MG TABLET (FP) PO PRN (10:18)
[2021-09-16] MEDS: METHOCARBAMOL 500 MG TABLET PO PRN ×2 (10:18→21:35)
[2021-09-16] MEDS: hydrOXYzine PAMOATE 25 MG CAPSULE (FP) PO PRN (10:19)
[2021-09-16] MEDS: ALBUTEROL SO4 HFA INHALER IH PRN (16:12)
[2021-09-16] MEDS: MELATONIN 5 MG TABLETS PO SCH (21:34)
[2021-09-16] MEDS: THIAMINE HCL 100 MG TABLET (FP) PO SCH (21:35)
[2021-09-17] MEDS: PRENATAL VITAMINS W/ FOLIC ACID TABLET (FP) PO SCH (11:06)
[2021-09-17 11:17] VITALS: BP 103/67; PULSE 80; TEMP 97.1
[2021-09-17] MEDS ORDERED: NICOTINE 10 MG CARTRIDGE (INHALER) IH PRN (11:22)
[2021-09-17] MEDS ORDERED: NICOTINE POLACRILEX 2 MG GUM BUC PRN (11:22)
[2021-09-17] MEDS: NICOTINE 14 MG/24 HOURS TOPICAL PATCH TD SCH (11:39)
[2021-09-17] MEDS: ALBUTEROL SO4 HFA INHALER IH PRN (21:26)
[2021-09-17] MEDS: THIAMINE HCL 100 MG TABLET (FP) PO SCH (21:27)
[2021-09-17] MEDS: METHOCARBAMOL 500 MG TABLET PO PRN (21:27)
[2021-09-17] MEDS: hydrOXYzine PAMOATE 25 MG CAPSULE (FP) PO PRN (21:27)
[2021-09-17] MEDS ORDERED: traZODone HCL 50 MG TABLET (FP) PO SCH (22:00)
[2021-09-17] MEDS ORDERED: QUEtiapine FUMARATE 100 MG TABLET (FP) PO SCH (22:00)
[2021-09-17] MEDS: MELATONIN 5 MG TABLETS PO SCH (22:02)
[2021-09-18] MEDS: ALBUTEROL SO4 HFA INHALER IH PRN (03:52)
[2021-09-18] MEDS: NICOTINE 14 MG/24 HOURS TOPICAL PATCH TD SCH (10:37)
[2021-09-18] MEDS: PRENATAL VITAMINS W/ FOLIC ACID TABLET (FP) PO SCH (10:37)
== END 2021-09-18 11:58 | disposition left against medical advice (07) | DRG 770 ==
LOC: YASAS 13:25 → Y5N 13:26
PROVIDERS: ADMIT Allergy & Immunology; ATTEND Allergy & Immunology
PROC: HZ42ZZZ Group Counseling for Substance Abuse Treatment, Cognitive-Behavioral (ICD-10-PCS; principal; 2021-09-13)
DX: F10.20 Alcohol dependence, uncomplicated (principal); F14.20 Cocaine dependence, uncomplicated; F17.210 Nicotine dependence, cigarettes, uncomplicated; F31.9 Bipolar disorder, unspecified; F19.24 Other psychoactive substance dependence with psychoactive substance-induced mood disorder; F19.282 Other psychoactive substance dependence with psychoactive substance-induced sleep disorder; Z91.51 Personal history of suicidal behavior; Z86.19 Personal history of other infectious and parasitic diseases; Z56.0 Unemployment, unspecified

== ENCOUNTER 2022-05-11 17:27 | Inpatient (IN) | payer OTHER ==
[2022-05-11 19:38] VITALS: BMI 22.3
[2022-05-11] MEDS ORDERED: P-EPHED 60MG/TRIPROLIDI 2.5MG TABLET PO PRN (21:03)
[2022-05-11] MEDS ORDERED: ONDANSETRON *ODT* 4 MG TABLET SL PRN (21:03)
[2022-05-11] MEDS ORDERED: IBUPROFEN 400 MG TABLET (FP) PO PRN (21:03)
[2022-05-11] MEDS ORDERED: BENZOCAINE/MENTHOL (CHLORASEPTIC ) LOZENGE MM PRN (21:03)
[2022-05-11] MEDS ORDERED: LOPERAMIDE HCL 2 MG CAPSULE PO PRN (21:03)
[2022-05-11] MEDS ORDERED: MAGNESIUM HYDROX 2400MG/30ML ORAL SUSPENSION 30 ML CUP PO PRN (21:03)
[2022-05-11] MEDS ORDERED: BISMUTH SUBSALICYLATE 524 MG/30 ML PO PRN (21:03)
[2022-05-11] MEDS ORDERED: guaiFENesin 200 MG/10 ML 10 ML UNIT-DOSE CUPS PO PRN (21:03)
[2022-05-11] MEDS ORDERED: MAG HYDROX/AL HYDROX/SIMETH 30 ML UNIT-DOSE CUP PO PRN (21:03)
[2022-05-11] MEDS ORDERED: ACETAMINOPHEN 325 MG TABLET (FP) PO PRN ×2 (21:03)
[2022-05-11] MEDS ORDERED: MAGNESIUM CITRATE 300 ML BOTTLE PO PRN (21:03)
[2022-05-11] MEDS ORDERED: NICOTINE POLACRILEX 2 MG GUM BUC PRN (21:03)
[2022-05-11] MEDS ORDERED: IBUPROFEN 600 MG TABLET (FP) PO PRN (21:03)
[2022-05-11] MEDS ORDERED: DICYCLOMINE HCL 10 MG CAPSULE PO PRN (21:03)
[2022-05-12] MEDS: THIAMINE HCL 100 MG TABLET (FP) PO SCH ×2 (02:36→22:34)
[2022-05-12] MEDS: MELATONIN 5 MG TABLETS PO SCH ×2 (02:36→22:34)
[2022-05-12] MEDS: hydrOXYzine PAMOATE 25 MG CAPSULE (FP) PO PRN ×3 (10:10→22:35)
[2022-05-12] MEDS: PRENATAL VITAMINS W/ FOLIC ACID TABLET (FP) PO SCH (10:10)
[2022-05-12] MEDS: METHOCARBAMOL 500 MG TABLET PO PRN ×2 (10:10→17:52)
[2022-05-12] MEDS: NICOTINE 21 MG/24 HOURS TOPICAL PATCH TD SCH (10:10)
[2022-05-12] MEDS: NALTREXONE HCL 50 MG TABLET PO SCH (14:50)
[2022-05-12] MEDS ORDERED: traZODone HCL 100 MG TABLET (FP) PO SCH (22:00)
[2022-05-12] MEDS ORDERED: QUEtiapine FUMARATE 100 MG TABLET (FP) PO SCH (22:00)
[2022-05-13 06:08] VITALS: BP 111/69; PULSE 60; RESP 17; TEMP 97.8
[2022-05-13] MEDS: NICOTINE 21 MG/24 HOURS TOPICAL PATCH TD SCH (11:06)
[2022-05-13] MEDS: NALTREXONE HCL 50 MG TABLET PO SCH (11:07)
[2022-05-13] MEDS: PRENATAL VITAMINS W/ FOLIC ACID TABLET (FP) PO SCH (11:07)
[2022-05-13 14:31] LABS: HEMATOCRIT 38.3 % (32.4-45.2); HEMOGLOBIN 12.5 GM/dL (10.7-15.3); MCH 28.1 pg (25.7-33.7); MCHC 32.5 g/dl (32.0-36.0); MEAN CELL VOLUME 86.6 fl (80-96); MEAN PLT VOLUME 8.9 fl (7.5-11.1); PLATELET COUNT 262 10^3/uL (134-434); RBC 4.43 M/mm3 (3.60-5.2); RDW 14.7 % (11.6-15.6); WHITE BLOOD COUNT 4.7 K/mm3 (4.0-10.0)
[2022-05-13 14:57] LABS: BLOOD UREA NITROGEN 14.1 mg/dL (7-18)
[2022-05-13 14:58] LABS: ALBUMIN 2.9 g/dl (3.4-5.0); CALCIUM 8.6 mg/dL (8.5-10.1)
[2022-05-13 15:01] LABS: CREATININE 0.6 mg/dL (0.55-1.3)
[2022-05-13 15:02] LABS: BILIRUBIN,TOTAL 0.5 mg/dL (0.2-1); TOT PROT 5.8 g/dl (6.4-8.2)
[2022-05-13 20:41] LABS: HIV INTERPRETATION NEGATIVE (NEGATIVE)
== END 2022-05-13 11:09 | disposition home or self-care (01) | DRG 774 ==
LOC: YASAS 17:27 → UNDOADMIN 05-12 02:19 → Y6N 05-12 02:19
PROVIDERS: ADMIT Allergy & Immunology; ATTEND Allergy & Immunology
PROC: HZ2ZZZZ Detoxification Services for Substance Abuse Treatment (ICD-10-PCS; principal; 2022-05-12)
DX: F10.230 Alcohol dependence with withdrawal, uncomplicated (principal); F14.20 Cocaine dependence, uncomplicated; F17.213 Nicotine dependence, cigarettes, with withdrawal; F41.9 Anxiety disorder, unspecified; F31.9 Bipolar disorder, unspecified; F19.24 Other psychoactive substance dependence with psychoactive substance-induced mood disorder; F19.282 Other psychoactive substance dependence with psychoactive substance-induced sleep disorder; J45.20 Mild intermittent asthma, uncomplicated; Z86.19 Personal history of other infectious and parasitic diseases; Z91.51 Personal history of suicidal behavior; Z56.0 Unemployment, unspecified; Z59.00 Homelessness unspecified
CPT/HCPCS: 36415; 80053; 81025; 85027; 86593; 86780; 87389; C9803-CS; U0003; U0005

== ENCOUNTER 2022-09-23 16:40 | Inpatient (IN) | payer OTHER ==
[2022-09-23 17:51] VITALS: BMI 23.6
[2022-09-23] MEDS ORDERED: IBUPROFEN 400 MG TABLET (FP) PO PRN (18:48)
[2022-09-23] MEDS ORDERED: NICOTINE POLACRILEX 4 MG GUM BUC PRN (18:48)
[2022-09-23] MEDS ORDERED: guaiFENesin 200 MG/10 ML 10 ML UNIT-DOSE CUPS PO PRN (18:48)
[2022-09-23] MEDS ORDERED: MAG HYDROX/AL HYDROX/SIMETH 30 ML UNIT-DOSE CUP PO PRN (18:48)
[2022-09-23] MEDS ORDERED: MAGNESIUM HYDROX 2400MG/30ML ORAL SUSPENSION 30 ML CUP PO PRN (18:48)
[2022-09-23] MEDS ORDERED: LOPERAMIDE HCL 2 MG CAPSULE PO PRN (18:48)
[2022-09-23] MEDS ORDERED: ACETAMINOPHEN 325 MG TABLET (FP) PO PRN (18:48)
[2022-09-23] MEDS ORDERED: POLYETHYLENE GLYCOL (HEALTHYLAX) 3350 17 GM PACKET PO PRN (18:48)
[2022-09-23] MEDS ORDERED: BENZOCAINE/MENTHOL (CHLORASEPTIC ) LOZENGE MM PRN (18:48)
[2022-09-23] MEDS ORDERED: P-EPHED 60MG/TRIPROLIDI 2.5MG TABLET PO PRN (18:48)
[2022-09-23] MEDS: hydrOXYzine PAMOATE 25 MG CAPSULE (FP) PO PRN (22:45)
[2022-09-23] MEDS: MELATONIN 5 MG TABLETS PO SCH (22:45)
[2022-09-23] MEDS: THIAMINE HCL 100 MG TABLET (FP) PO SCH (22:45)
[2022-09-24 07:33] VITALS: RESP 18
[2022-09-24] MEDS: hydrOXYzine PAMOATE 25 MG CAPSULE (FP) PO PRN (10:34)
[2022-09-24] MEDS: PRENATAL VITAMINS W/ FOLIC ACID TABLET (FP) PO SCH (10:34)
[2022-09-24] MEDS: NICOTINE 14 MG/24 HOURS TOPICAL PATCH TD SCH (10:35)
[2022-09-24 12:38] LABS: CALCIUM 8.9 mg/dL (8.5-10.1)
[2022-09-24 12:39] LABS: ALBUMIN 2.8 g/dl (3.4-5.0); BLOOD UREA NITROGEN 16.4 mg/dL (7-18)
[2022-09-24 12:40] LABS: CREATININE 0.6 mg/dL (0.55-1.3)
[2022-09-24 12:42] LABS: BILIRUBIN,TOTAL 0.7 mg/dL (0.2-1)
[2022-09-24 13:27] LABS: HEMATOCRIT 38.4 % (32.4-45.2); HEMOGLOBIN 12.4 GM/dL (10.7-15.3); MCHC 32.2 g/dl (32.0-36.0); MEAN CELL VOLUME 86.8 fl (80-96); MEAN PLT VOLUME 8.7 fl (7.5-11.1); PLATELET COUNT 308 10^3/uL (134-434); RBC 4.42 M/mm3 (3.60-5.2); RDW 14.7 % (11.6-15.6)
[2022-09-24] MEDS: QUEtiapine FUMARATE 100 MG TABLET (FP) PO SCH (21:43)
[2022-09-24] MEDS: THIAMINE HCL 100 MG TABLET (FP) PO SCH (21:43)
[2022-09-24] MEDS: MELATONIN 5 MG TABLETS PO SCH (21:43)
[2022-09-25] MEDS: PRENATAL VITAMINS W/ FOLIC ACID TABLET (FP) PO SCH (11:02)
[2022-09-25] MEDS: NICOTINE 14 MG/24 HOURS TOPICAL PATCH TD SCH (11:02)
[2022-09-25] MEDS: QUEtiapine FUMARATE 100 MG TABLET (FP) PO SCH (22:52)
[2022-09-25] MEDS: MELATONIN 5 MG TABLETS PO SCH (22:52)
[2022-09-25] MEDS: THIAMINE HCL 100 MG TABLET (FP) PO SCH (22:52)
[2022-09-26] MEDS: PRENATAL VITAMINS W/ FOLIC ACID TABLET (FP) PO SCH (11:10)
[2022-09-26] MEDS: NICOTINE 14 MG/24 HOURS TOPICAL PATCH TD SCH (11:11)
[2022-09-26] MEDS: THIAMINE HCL 100 MG TABLET (FP) PO SCH (21:12)
[2022-09-26] MEDS: QUEtiapine FUMARATE 100 MG TABLET (FP) PO SCH (21:12)
[2022-09-26] MEDS: MELATONIN 5 MG TABLETS PO SCH (21:12)
[2022-09-27 07:25] VITALS: BP 114/71; PULSE 80; TEMP 96.3
[2022-09-27] MEDS: NICOTINE 14 MG/24 HOURS TOPICAL PATCH TD SCH (10:53)
[2022-09-27] MEDS: PRENATAL VITAMINS W/ FOLIC ACID TABLET (FP) PO SCH (10:53)
== END 2022-09-27 16:40 | disposition home or self-care (01) | DRG 772 ==
LOC: YASAS 16:40 → Y5N 19:19
PROVIDERS: ADMIT Allergy & Immunology; ATTEND Surgery
PROC: HZ42ZZZ Group Counseling for Substance Abuse Treatment, Cognitive-Behavioral (ICD-10-PCS; principal; 2022-09-23)
DX: F10.20 Alcohol dependence, uncomplicated (principal); F14.20 Cocaine dependence, uncomplicated; F17.210 Nicotine dependence, cigarettes, uncomplicated; F19.24 Other psychoactive substance dependence with psychoactive substance-induced mood disorder; J45.909 Unspecified asthma, uncomplicated; Z86.59 Personal history of other mental and behavioral disorders; Z86.19 Personal history of other infectious and parasitic diseases; Z91.51 Personal history of suicidal behavior; Z56.0 Unemployment, unspecified
CPT/HCPCS: 36415; 80053; 81025; 85027; 86593; 86780; 86803; C9803-CS; U0003; U0005

== ENCOUNTER 2024-09-25 12:52 | Inpatient (IN) | payer OTHER ==
[2024-09-25 14:54] VITALS: BMI 21.6
[2024-09-25] MEDS ORDERED: BENZONATATE 200 MG CAPSULE PO PRN (15:01)
[2024-09-25] MEDS ORDERED: guaiFENesin 600 MG TABLET.ER (FP) PO PRN (15:01)
[2024-09-25] MEDS ORDERED: POLYETHYLENE GLYCOL (HEALTHYLAX) 3350 17 GM PACKET PO PRN (15:01)
[2024-09-25] MEDS ORDERED: ONDANSETRON *ODT* 4 MG TABLET SL PRN (15:01)
[2024-09-25] MEDS ORDERED: IBUPROFEN 600 MG TABLET (FP) PO PRN (15:01)
[2024-09-25] MEDS ORDERED: BISMUTH SUBSALICYLATE 524 MG/30 ML PO PRN (15:01)
[2024-09-25] MEDS ORDERED: LOPERAMIDE HCL 2 MG CAPSULE PO PRN (15:01)
[2024-09-25] MEDS ORDERED: BENZOCAINE/MENTHOL (CHLORASEPTIC ) LOZENGE MM PRN (15:01)
[2024-09-25] MEDS ORDERED: NICOTINE POLACRILEX 2 MG GUM BUC PRN (15:01)
[2024-09-25] MEDS ORDERED: NICOTINE POLACRILEX 2 MG LOZENGE BC PRN (15:01)
[2024-09-25] MEDS ORDERED: DICYCLOMINE HCL 10 MG CAPSULE PO PRN (15:01)
[2024-09-25] MEDS ORDERED: chlordiazePOXIDE HCL 25 MG CAPSULE PO PRN (15:01)
[2024-09-25] MEDS ORDERED: NALOXONE (NARCAN) HCL 4 MG/0.1 ML SPRAY NS PRN (15:01)
[2024-09-25] MEDS ORDERED: ACETAMINOPHEN 325 MG TABLET (FP) PO PRN (15:01)
[2024-09-25] MEDS ORDERED: MAG HYDROX/AL HYDROX/SIMETH 30 ML UNIT-DOSE CUP PO PRN (15:01)
[2024-09-25] MEDS ORDERED: IBUPROFEN 400 MG TABLET (FP) PO PRN (15:01)
[2024-09-25] MEDS ORDERED: MAGNESIUM HYDROX 2400MG/30ML ORAL SUSPENSION 30 ML CUP PO PRN (15:01)
[2024-09-25] MEDS: MELATONIN 5 MG TABLETS PO SCH (22:57)
[2024-09-25] MEDS: THIAMINE 100 MG TABLET PO SCH (22:57)
[2024-09-25] MEDS: QUEtiapine FUMARATE 100 MG TABLET (FP) PO SCH (22:57)
[2024-09-25] MEDS: chlordiazePOXIDE HCL 25 MG CAPSULE PO SCH (22:57)
[2024-09-26] MEDS: PRENATAL VITAMINS W/ FOLIC ACID TABLET (FP) PO SCH (09:40)
[2024-09-26] MEDS: DIVALPROEX SODIUM 500 MG TABLET E.C. PO SCH (09:42)
[2024-09-26] MEDS: hydrOXYzine PAMOATE 25 MG CAPSULE (FP) PO PRN (09:42)
[2024-09-26] MEDS: NALTREXONE HCL 50 MG TABLET PO SCH (09:42)
[2024-09-26] MEDS: NICOTINE 21 MG/24 HOURS TOPICAL PATCH TD SCH (09:43)
[2024-09-26 11:13] LABS: HEMATOCRIT 36.1 % (32.4-45.2); HEMOGLOBIN 11.4 GM/dL (10.7-15.3); MCH 27.1 pg (25.7-33.7); MCHC 31.6 g/dl (32.0-36.0); MEAN CELL VOLUME 85.7 fl (80-96); MEAN PLT VOLUME 8.4 fl (7.5-11.1); PLATELET COUNT 206 10^3/uL (134-434); RBC 4.21 M/mm3 (3.60-5.2); RDW 15.9 % (11.6-15.6); WHITE BLOOD COUNT 6.2 K/mm3 (4.0-10.0)
[2024-09-26 11:14] LABS: CHLORIDE 111 mmol/L (98-107); POTASSIUM 3.6 mmol/L (3.5-5.1); SODIUM 144 mmol/L (136-145)
[2024-09-26 11:21] LABS: BILIRUBIN,TOTAL 0.2 mg/dL (0.2-1)
[2024-09-26 11:22] LABS: ALK PHOS 44 U/L (45-117)
[2024-09-26 11:40] LABS: CALCIUM 8.6 mg/dL (8.5-10.1); GLUCOSE,RANDOM 126 mg/dL (74-106)
[2024-09-26 11:41] LABS: ALBUMIN 2.7 g/dl (3.4-5.0); ANION GAP 7 mmol/L (4-13); BLOOD UREA NITROGEN 13.8 mg/dL (7-18); CO2 26 mmol/L (21-32)
[2024-09-26 11:44] LABS: CREATININE 0.6 mg/dL (0.55-1.3); SGOT/AST 15 U/L (15-37); SGPT/ALT 18 U/L (13-61)
[2024-09-26 11:45] LABS: TOT PROT 5.4 g/dl (6.4-8.2)
[2024-09-27] MEDS: chlordiazePOXIDE HCL 25 MG CAPSULE PO SCH (05:40)
[2024-09-28] MEDS ORDERED: chlordiazePOXIDE HCL 10 MG CAPSULE PO PRN
[2024-09-28] MEDS: chlordiazePOXIDE HCL 10 MG CAPSULE PO SCH (05:53)
[2024-09-29] MEDS: chlordiazePOXIDE HCL 10 MG CAPSULE PO SCH (05:55)
[2024-09-30] MEDS: chlordiazePOXIDE HCL 10 MG CAPSULE PO ONE (06:26)
[2024-09-30] MEDS: METHOCARBAMOL 500 MG TABLET PO PRN (21:35)
[2024-10-01 11:27] VITALS: BP 111/76; PULSE 85; RESP 18; TEMP 97.7
== END 2024-10-01 12:37 | disposition other institution (70) | DRG 774 ==
LOC: YASAS 12:52 → Y6N 17:59
PROVIDERS: ADMIT Allergy & Immunology; ATTEND Surgery
PROC: HZ2ZZZZ Detoxification Services for Substance Abuse Treatment (ICD-10-PCS; principal; 2024-09-25)
DX: F10.230 Alcohol dependence with withdrawal, uncomplicated (principal); F14.20 Cocaine dependence, uncomplicated; F17.213 Nicotine dependence, cigarettes, with withdrawal; F25.0 Schizoaffective disorder, bipolar type; F19.24 Other psychoactive substance dependence with psychoactive substance-induced mood disorder; Z20.2 Contact with and (suspected) exposure to infections with a predominantly sexual mode of transmission; Z59.00 Homelessness unspecified
CPT/HCPCS: 36415; 80053; 80307; 85027; 86593; 86780; 93005; 93010